=== PATIENT | male | born 1995 | race Caucasian/White ===

== ENCOUNTER → 2020-10-15 | Outpatient (CLI) | payer SELFPAY | LOC: M LABSMTC 11:53 | PROVIDERS: ATTEND Pediatrics | DX: Z20.828 Contact with and (suspected) exposure to other viral communicable diseases (principal) ==

== ENCOUNTER 2022-05-09 12:39 | Emergency (ER) | payer OTHER, SELFPAY ==
[~2022-05-09] VITALS: Ht 180.3 cm; Wt 97.7 kg
[2022-05-09 14:15] LABS: RSV AMPLIFICATION NEGATIVE (NEGATIVE)
[2022-05-09] MEDS ORDERED: ACETAMINOPHEN 325 MG TAB PO ONE (15:30)
[2022-05-09] MEDS ORDERED: AMOX875T2 PO (15:50)
[2022-05-09 16:00] VITALS: BP 113/59
== END 2022-05-09 16:03 | disposition home or self-care (01) ==
LOC: M ED 12:39
DX: J02.0 Streptococcal pharyngitis (principal)